=== PATIENT | female | born 1970 | race Caucasian/White ===

== ENCOUNTER 2021-12-06 07:22 | Emergency (ER) | payer BC, SELFPAY ==
[2021-12-06 07:30] VITALS: BP 117/68; PULSE 84; RESP 16; O2SAT 95
--- NOTE | 2021-12-06 08:30 | RT.EKG_ITS ---
APPROVED REPORT Exam: Resting ECG Reason for Exam: chest pain Patient Location: E HR:68 bpm ECG Measurements Heart Rate 68 AXIS MA 149 P 56 QRSd 86 QRS 20 QT 397 T 17 QTc 423 Conclusion Sinus rhythm...normal P axis, V-rate 60- 99 Low voltage, precordial leads...precordial leads <1.0mV
--- NOTE | 2021-12-06 08:32 | W.ED.GENAD ---
Discharge Plan Disposition Patient Disposition: HOME Condition: Improving Discharge Details Clinical Impression: DVT, lower extremity, recurrent Primary Care Provider: Lynda Ham ED Provider: Vince Harding Home Meds and New Rx's Prescriptions: New Eliquis 5 mg tablet 10 mg PO BID 14 Days Qty: 56 0RF Rx Instructions: THen start 5mg BID as before Continued famotidine [Pepcid] 20 mg Tablet 20 mg PO DAILY sertraline 25 mg Tablet 25 mg PO DAILY Discharge Instructions Additional Instructions: As we discussed formal ultrasound is not available in the ER today. Please see a copy of your lab results below. As we discussed, you may have an early right femoral vein small deep vein thrombus present on informal ultrasound. Given your history, this should be considered recurrent DVT. Please follow-up with Dr. Ham on Wednesday for repeat, formal ultrasound. Please restart Eliquis at 10 mg twice daily. Return or see nearest healthcare facility if develop chest pain, shortness of breath, or any other acute concerns WBC 5.25 RBC 4.43 Hgb 12.7 Hct 38.9 MCV 88 MCH 28.7 MCHC 32.6 RDW 13.2 Plt Count 156 PT 9.5 INR 0.9 APTT 24.7 D-Dimer 426 Sodium 140 Potassium 4.4 Chloride 105 Carbon Aazjacj66.6 Anion Gap 8.4 BUN 12 Creatinine 1.1 H Est GFR (CKD-EPI 2020) 61.22 Glucose 81 Calcium 8.7 Total Bilirubin 0.5 AST 16 ALT 21 Alkaline Phosphatase 105 Total Protein 6.9 Albumin 3.7 Medical Decision Making 51-year-old female who has a history of both DVT and PE. She is routinely on Eliquis and recently had plan to taper to half the dose. She had the Eliquis held this past Wednesday for colonoscopy which occurred on . She had 3 polyps removed during this procedure that was uneventful. She was to restart her Eliquis today. She is here visiting the region from her home in [place], [place]. She felt recurrent right calf discomfort similar to previous DVT last night. She has not had chest pain or shortness of breath and has otherwise been well. Her exam is reassuring, no asymmetry, cords or swelling of the lower extremity. Oxygenation is normal. Screening labs are obtained including CBC, chemistries and D-dimer which is negative. Ultrasound not available. A informal, preliminary bedside ultrasound reveals question of small thrombus in the mid femoral vein on the right. Patient has been scheduled to restart Eliquis at 5 mg twice daily, today. I will have her restart at 10 mg daily and she may return here or follow-up with primary care in [place], [place] for repeat ultrasound after the weekend. She understands indications to seek immediate care in the interim. Lab Data Lab results reviewed: Yes I reviewed the patient's lab results. Labs: Laboratory Results - last 24 hr 12/06/21 12/06/21 12/06/21 08:44 08:44 08:44 WBC 5.25 RBC 4.43 Hgb 12.7 Hct 38.9 MCV 88 MCH 28.7 MCHC 32.6 RDW 13.2 Plt Count 156 MPV 10.5 Immature Gran % 0.2 Neutrophils % 58.0 Lymphocytes % 29.9 Monocytes % 8.6 Eosinophils % 2.7 Basophils % 0.6 Nucleated RBC % 0.0 Absolute Neutrophils 3.05 Absolute Lymphocytes 1.57 Absolute Monocytes 0.45 Absolute Eosinophils 0.14 Absolute Basophils 0.03 PT 9.5 INR 0.9 APTT 24.7 D-Dimer 426 Sodium 140 Potassium 4.4 Chloride 105 Carbon Dioxide 26.6 Anion Gap 8.4 BUN 12 Creatinine 1.1 H Est GFR (CKD-EPI 2020) 61.22 Glucose 81 Calcium 8.7 Total Bilirubin 0.5 AST 16 ALT 21 Alkaline Phosphatase 105 Total Protein 6.9 Albumin 3.7 HPI General Mode of arrival: ambulatory. Date/Time Provider Initiated Documentation: 12/06/21 08:04. Limitations to Documentation: no limitations. Information obtained by: patient. History of Present Illness 51 year old F presents to the emergency department with the chief complaint of Right calf discomfort similar to blood clot, described as mild, Quality is described as dull, and is localized to the left and lower extremity. Patient reports no radiation. Patient started experiencing this hour(s) and it has been constant. No relieving factors improve symptom(s), No exacerbating factors reported . Patient notes denies shortness of breath. Patient did receive the following treatments prior to arrival, none Related Data Home Medications Medication Instructions Recorded Confirmed apixaban 5 mg tablet (Eliquis) 10 mg PO BID 2 weeks #56 tabs 12/06/21 famotidine 20 mg tablet (Pepcid) 20 mg PO DAILY 12/06/21 12/06/21 sertraline 25 mg tablet 25 mg PO DAILY 12/06/21 12/06/21 Previous Rx's Medication Instructions Recorded apixaban 5 mg tablet (Eliquis) 10 mg PO BID 2 weeks #56 tabs 12/06/21 Allergies Allergy/AdvReac Type Severity Reaction Status Date / Time acetaminophen [From Percocet] AdvReac Nausea Unverified 12/06/21 07:33 Latex, Natural Rubber AdvReac Skin Rash Unverified 12/06/21 07:33 oxycodone [From Percocet] AdvReac Nausea Unverified 12/06/21 07:33 General Stated Complaint: Vascular MANUELA: 3 Review of Systems Narrative: 6 systems reviewed and otherwise negative. Denies chest pain or shortness of breath. Lives in [facility]. No blood in stool. Had colonoscopy on and is to restart Eliquis today. PFSH All Active Problems (Updated 12/06/21 @ 09:47 by Vince Harding MD) DVT, lower extremity, recurrent (Acute) Social History Smoking/Tobacco Use Status: Never Smoking risk assessment performed?: Yes Alcohol Intake: current Alcohol Intake frequency: a few times a week Drug use: Never Substance use type: does not use Do you feel safe at home: Yes Exam Narrative Exam Narrative: GEN: awake, alert, oriented 3. Pleasant, well groomed, interactive. HEAD: Normocephalic, atraumatic ENT: Mucous membranes moist, External ear exam unremarkable EYES: PERRL, EOMI NECK: Full ROM, no DAYAMI, no menigismus CHEST/RESP: Nontender, clear to auscultation bilateral, no wheeze/rhonchi/rales CARDIOVASCULAR: RRR, no murmur, rub natasha. 2+ Rad pulse bilateral ABDOMEN: Soft, nontender, no mass. +Bowel sounds EXT: Full ROM, no edema, no rash, no asymmetry Neuro: Grossly normal neurologic exam, conversant, interactive. Psych: Speech fluent, thoughts congruent, affect normal Course Vital Signs Vital signs: Vital Signs Pulse 84 12/06/21 07:30 Respiratory Rate 16 12/06/21 07:30 Blood Pressure 117/68 12/06/21 07:30 Pulse Oximetry 95 12/06/21 07:30 Pulse 84 12/06/21 07:30 Respiratory Rate 16 12/06/21 07:30 Respiratory Effort Non-Labored 12/06/21 07:35 Blood Pressure 117/68 12/06/21 07:30 Blood Pressure Position Sitting 12/06/21 07:30 Pulse Oximetry 95 12/06/21 07:30 Oxygen Delivery Method Room Air 12/06/21 07:30 Oxygen Flow Rate 0 12/06/21 07:30 Pain Level 2 12/06/21 07:30 PAWSS Have you Been Recently Intoxicated or Drunk Within the Last 30 days?: No Have you Ever Experienced Previous Episodes of Alcohol Withdrawal?: No Have you ever Experienced Withdrawal Seizures?: No Have you ever Experienced Delirium Tremens(DT)s?: No Have you ever undergone Alcohol Rehabilitation Treatment (i.e, inpt ot outpatient treatment programs)?: No Have you ever Experienced Blackouts?: No Have you ever Combined Alcohol with other Downers within the last 90 days?: No Have you ever Combined Alcohol with any other Substance of Abuse during the last 90 days?: No Positive Blood Alcohol level on Presentation? [PCS.BAL]: No Evidence of Increased Autonomic Activity (i.e. HR>120, tremor, sweating, agitation, nausea)?: No Result: 0
[2021-12-06 08:57] LABS: Abs Immature Grans 0.01 10^3/uL (0.0-0.06); Absolute Basophil Count 0.03 10^3/uL (0.0-0.2); Absolute Eosinophil Count 0.14 10^3/uL (0.0-0.7); Absolute Lymphocyte Count 1.57 10^3/uL (1.2-3.4); Absolute Monocyte Count 0.45 10^3/uL (0.1-0.8); Absolute Neutrophil Count 3.05 10^3/uL (1.2-6.7); Basophils % 0.6; Eosinophils % 2.7; HCT 38.9 % (36.0-46.0); HGB 12.7 g/dL (11.2-15.7); Immature Grans % 0.2; Lymphocytes % 29.9; MCH 28.7 pg (27.0-33.0); MCHC 32.6 % (32.0-36.0); MCV 88 fL (80-95); MPV 10.5 fL (8.0-11.0); Monocytes % 8.6; Platelet Count 156 10^3/uL (130-400); RBC 4.43 10^6/uL (3.93-5.22); RDW 13.2 % (11.7-14.6); RDW-SD 42.9 fL; WBC 5.25 10^3/uL (4.4-10.8)
[2021-12-06 09:06] LABS: INR 0.9 (0.9-1.1); PTT Activated 24.7 sec (21.0-27.5); Prothrombin Time 9.5 sec (9.3-11.0)
[2021-12-06 09:07] LABS: ALT 21 U/L (14-59); AST 16 U/L (15-37); Albumin 3.7 g/dL (3.4-5.0); Alkaline Phosphatase 105 U/L (46-116); Anion Gap 8.4 mmol/L (3-11); BUN 12 mg/dL (7-18); Bilirubin, Total 0.5 mg/dL (0.2-1.0); CO2 26.6 mmol/L (21.0-32.0); CREATININE 1.1 mg/dL (0.55-1.02); Calcium 8.7 mg/dL (8.5-10.1); Chloride 105 mmol/L (98-107); Estimated GFR 61.22 (mL/min/1.73m2); Glucose 81 mg/dL (74-106); Potassium 4.4 mmol/L (3.5-5.1); Sodium 140 mmol/L (136-145); Total Protein 6.9 g/dL (6.4-8.2)
[2021-12-06 09:25] LABS: D-Dimer 426 ng/mlFEU (<500)
== END 2021-12-06 09:54 | disposition home or self-care (01) ==
PROVIDERS: Emergency Provider Emergency Medicine; PCP Internal Medicine
DX: I82.461 Acute embolism and thrombosis of right calf muscular vein (principal); Z86.711 Personal history of pulmonary embolism; Z79.01 Long term (current) use of anticoagulants
CPT/HCPCS: 80053; 93005; 99283; 85025; 85379; 85610; 85730; 93010; 99284